=== PATIENT | male | born 1985 | race Caucasian/White ===

== ENCOUNTER 2016-05-09 17:19 | Emergency (ER) ==
[2016-05-09 17:38] VITALS: BP 102/59
[2016-05-09] MEDS ORDERED: ZOFRAN ODT PO ONE (18:14)
[2016-05-09] MEDS ORDERED: NORCO-7.5 PO ONE (18:14)
--- NOTE | 2016-05-09 18:20 | PROVIDER DOCUMENTATION ---
HPI-Musculoskeletal Pain/Inj - GENERAL Chief Complaint: Extremity Injury Stated Complaint: HAND INJURY Time Seen by Provider: 05/09/16 17:50 Source: patient - HX OF PRESENT ILLNESS-MUSKULOSKELTAL Nature of Presenting Problem: 31 y/o WM c/o R hand pain s/p punching a pallet at work x 2 hours. Pt states several fx to the hand previously. Reports pain 10/10. Denies any elbow, wrist , shoulder pain. Denies numbness/tingling. LROM due to pain. Review of Systems - Adult - REVIEW OF SYSTEMS - ADULT Constitutional: reports: no symptoms reported. denies: chills, fever Eyes: reports: no symptoms reported. denies: blurred vision, double vision Ears, Nose, Mouth & Throat: reports: no symptoms reported. denies: ear pain, nose pain Cardiovascular: reports: no symptoms reported. denies: chest pain, palpitations Respiratory: reports: no symptoms reported. denies: dyspnea on exertion, shortness of breath Gastrointestinal: reports: no symptoms reported. denies: nausea, vomiting Genitourinary: reports: no symptoms reported. denies: dysuria, frequency Musculoskeletal: reports: see HPI, joint pain. denies: back pain, neck pain Integumentary: reports: no symptoms reported. denies: nail changes, rash Neurological: reports: no symptoms reported. denies: numbness, paresthesia Psychiatric: reports: no symptoms reported Endocrine: reports: no symptoms reported. denies: cold intolerance, heat intolerance Hematologic/Lymphatic: reports: no symptoms reported. denies: easy bruising, prolonged bleeding Allergic/Immunologic: reports: no symptoms reported All Other Systems: Reviewed and Negative Past History - Adult - PAST MEDICAL HISTORY-ADULT Review of Records: reports: Nursing Assessment Review, Medications Reviewed Major Childhood Illnesses: reports: denies history Cardiovascular: reports: denies history Respiratory: reports: denies history Gastrointestinal: reports: denies history Obstetrical/Gynecological: reports: denies history Genitourinary: reports: denies history Musculoskeletal: reports: denies history Neurological: reports: denies history Endocrine/Immune: reports: denies history Other Conditions: reports: denies history - PRIOR SURGERIES/PROCEDURES Surgical/Procedure History: reports: none - PRIOR HOSPITALIZATIONS Prior Hospitalizations: reports: none - IMMUNIZATION STATUS Childhood Immunizations: See Nurse Assessment Flu Vaccine: See Nurse Assessment - FAMILY HISTORY Family History: reviewed, not pertinent - SOCIAL HISTORY Smoking: cigarettes, less than 1 pack/day Provider spent 3-5 mins advising pt. on dangers of tobacco.: Discussed manners to quit use, and f/u contacts for add'l counseling. Physical Exam-Injury Related - Physical Exam-Injury Related Initial Vital Signs Reviewed: Yes General Appearance: alert, moderate distress Eyes: pink conjunctivae Head, Ears, Nose, Mouth & Throat: normocephalic/atraumatic, moist mucous membranes Neck: normal inspection Respiratory: no respiratory distress Cardiovascular: normal peripheral pulses, regular rate, rhythm Peripheral Pulses: radial (R): 2+, radial (L): 2+ Back Exam: normal inspection Extremity: normal gait, normal capillary refill, deformity, swelling (proximal aspect of MC 3-4 of R hand), tenderness (3-4 MC). negative: normal range of motion (LROM at 3-4 digit of R hand, but still able to flex and extend), abnormal NV exam, pulse deficit Integumentary: normal color, warm/dry, blanching Neurologic: negative: aphasia Psych/Mental Status: normal mood/affect, normal thought content, normal thought process, oriented x 3 Progress - PLAN OF CARE/RESULTS Progress/Plan/Lab Results: Orders Category Date Time Status Arm Sling DIRECTED Care 05/09/16 18:13 Active OCL Splint DIRECTED Care 05/09/16 18:13 Active HAND COMPLETE RIGHT [RAD] Stat Exams 05/09/16 17:50 Completed Hydrocodone/APAP 7.5 mg/325 mg [[place]-7.5] Med 05/09/16 18:14 Discontinued 1 each PO NOW ONE Ondansetron Odt [Zofran Odt] Med 05/09/16 18:14 Discontinued 4 mg PO NOW ONE Vital Signs Temp Pulse Resp BP Pulse Ox 05/09/16 17:29 97.8 F 60 18 102/59 100 cefixime [From Suprax] Allergy (Mild, Verified 05/09/16 19:21) SWELLING cinnamon [Cinnamon] Adverse Reaction (Mild, Verified 05/09/16 19:21) SWELLING Hydrocodone/APAP 7.5 mg/325 mg [[place]-7.5] 1 each PO Q6H PRN PRN #20 tablet 08/20 Promethazine [Phenergan] 25 mg PO Q6H PRN PRN #20 tablet 05/09/16 Discussed wear of splint and f/u with orthopedist. - XRAY 1 XRAY: Right XRAY Study: Hand XRAY Interpretation: impacted fx of base of 4th MC Procedures - SPLINTING Right Upper Extremity Pre-Procedure Neurovascular Exam: Intact Pre-Fabricated Splint: Arm Sling Splint Application (Hand-Made): Other (ulnar gutter) Applied By: Mid-level Assisted By: Mid-level Post Procedure Neurovascular Exam: Intact Procedure Comment: Pt tolerated well Departure - Departure Time of Disposition Order: 18:14 DIAGNOSIS: Fracture, metacarpal Qualifiers: Encounter type: initial encounter Metacarpal bone: fourth Fracture type: closed Metacarpal location: base Fracture alignment: displaced Laterality: right Qualified Code(s): S62.314A - Displaced fracture of base of fourth metacarpal bone, right hand, initial encounter for closed fracture Disposition: HOME 01 Certified Medical Emergency: Emergent Condition: Stable Additional Instructions: Follow up with specialist for further management. Take medications as directed. Return if symptoms get worse. ED Follow Up Instructions: You have been treated by a care provider in the Emergency Department. These instructions are being provided to you so you can have an understanding of how to care for yourself upon discharge. Upon discharge from the Emergency Department, you are responsible for making arrangements for follow-up care by a physician of your choice. Take all prescribed medications as directed. Return to the Emergency Department immediately for any new or worsening symptoms. You may call the Physician Referral phone number at [phone] to obtain a list of Physicians who are taking new patients. Prescriptions: Hydrocodone/APAP 7.5 mg/325 mg [[place]-7.5] 1 each PO Q6H PRN PRN #20 tablet PRN Reason: Pain Promethazine [Phenergan] 25 mg PO Q6H PRN PRN #20 tablet PRN Reason: Nausea Referrals: None,PCP [Primary Care Provider] - Carlos Rangel MD [STAFF PHYSICIAN] - Instructions: Hand Fracture, Metacarpals, [id number] Attestation - Physician/ JASMYNE Attestation Patient care was provided by Advanced Practice Provider:: Yes Advanced Practice Provider:: Esther Hansen Advanced Practice Provider documentation review:: The Mid-level provider documentation, treatment plan and medical decision making was reviewed by the physician who agrees with all treatment and medical decision making by the MLP.
--- NOTE | 2016-05-10 08:58 | Diag Imaging Result Document ---
PROCEDURE NAME: HAND COMPLETE RIGHT - 05/09/2016 PLAIN RADIOGRAPH OF THE RIGHT HAND 3 VIEWS: COMPARISON: 12/04/2014. FINDINGS: There is a stable deformity involving the 1st and the 5th metacarpals likely related to old healed fractures. There is suggestion of mild irregularity at the base of the 4th metacarpal that is not seen on the previous study and also there are perhaps small bony fragments near the base of the 4th metacarpal that is best seen on the lateral view. These also cannot be identified on the previous study. This is suggestive of an acute fracture. Please correlate clinically and a followup plain radiograph of the right hand is recommended in 7-10 days to confirm this. No other definite acute fracture is identified. There is soft-tissue edema at the dorsum of the hand. IMPRESSION: 1. Chronic deformities involving the 1st and 5th metacarpals. 2. Findings worrisome for acute fracture at the base of the 4th metacarpal. Please see above discussion.
== END 2016-05-09 19:24 | disposition home or self-care (01) ==
LOC: ED 17:19
DX: S62.314A Displaced fracture of base of fourth metacarpal bone, right hand, initial encounter for closed fracture (principal); M79.641 Pain in right hand; R22.31 Localized swelling, mass and lump, right upper limb; F17.210 Nicotine dependence, cigarettes, uncomplicated; Z71.6 Tobacco abuse counseling; W22.8XXA Striking against or struck by other objects, initial encounter

== ENCOUNTER 2016-05-24 09:57 | Day surgery (SDC) ==
[2016-05-24] MEDS ORDERED: KEFZOL 1 GM/D5W 50 ML ONE (10:28)
[2016-05-24] MEDS ORDERED: PEPCID ONE (10:28)
[2016-05-24] MEDS ORDERED: REGLAN ONE (10:28)
[2016-05-24] MEDS ORDERED: LR 1,000 ML ONE ×2 (10:29→13:32)
[2016-05-24] MEDS ORDERED: NEOSPORIN G.U. IRRIGANT ONE (11:30)
[2016-05-24] MEDS ORDERED: MARCAINE 0.5% ONE (11:30)
[2016-05-24] MEDS ORDERED: XYLOCAINE 1% ONE (12:10)
[2016-05-24] MEDS ORDERED: MORPHINE ONE (13:10)
[2016-05-24] MEDS ORDERED: DIPRIVAN 1% ONE (13:10)
[2016-05-24] MEDS ORDERED: FENTANYL ONE (13:10)
[2016-05-24] MEDS: DEMEROL ONE ×2 (13:13→13:18)
[2016-05-24] MEDS ORDERED: PHENERGAN ONE (13:21)
[2016-05-24] MEDS ORDERED: XYLOCAINE-MPF 2% ONE (13:32)
[2016-05-24] MEDS ORDERED: TORADOL ONE (13:32)
[2016-05-24] MEDS ORDERED: DEMEROL ONE (13:44)
[2016-05-24] MEDS ORDERED: NORCO-10 ONE (14:16)
[2016-05-24 14:45] VITALS: BP 121/81
--- NOTE | 2016-05-24 16:31 | OPERATIVE NOTE ---
PROCEDURE DATE: 05/24/2016 PREOPERATIVE DIAGNOSES: 1. Right 4th and 5th carpometacarpal dislocation. 2. Right hamate fracture. POSTOPERATIVE DIAGNOSES: 1. Right 4th and 5th carpometacarpal dislocation. 2. Right hamate fracture. PROCEDURE: 1. Right open reduction internal fixation 4th and 5th carpometacarpal dislocation. 2. Right partial excision hamate. SURGEON: Tiburcio Shin MD LINE ERECTOR APPRENTICE: Blas Fierro RN ANESTHESIA: General with LMA. TOURNIQUET TIME: Just over 30 minutes. IMPLANTS: Three K-wires. DISPOSITION: To PACU, hemodynamically stable. INDICATION FOR PROCEDURE: Mr. Ilan Arriaga 31-year-old male who presented to clinic. Originally from his original x-rays it was hard to tell other than a 4th metacarpal fracture how much of this 4th metacarpal was popped up. So we waited a week for a lot of the swelling to go down, brought him back, repeated x-rays, which did show a pretty significant 4th carpometacarpal dislocation along with a 5th. So discussed with him then about operative intervention. I went over with him the procedure, risks, benefits, potential complications, and he expressed understanding and wished to proceed. DESCRIPTION OF PROCEDURE: Mr. Arriaga was identified in the preoperative holding area. The right upper extremity was marked as correct surgical site. He was then wheeled to the operating room, placed supine on the operating table. All bony prominences well padded. He was induced under general anesthesia. LMA was placed. Tourniquet was placed to the right arm. Right upper extremity was then prepped with chlorhexidine gluconate scrub and then ChloraPrep, and draped in normal sterile fashion. Surgical pause was performed. We identified the correct patient, correct side, and the correct procedure. Preop antibiotics were given. Esmarch was used to exsanguinate the right upper extremity and tourniquet inflated to 250 mmHg. Total tourniquet time was just over 30 minutes. Attempted a closed reduction, but I did not feel that I could get it exactly where we needed it. So I ended up making a longitudinal incision over that 4th CMC joint. Dissection was carried down carefully and the capsule was opened, noticed that a piece of the hamate that did have cartilage on it was loose there and it was very small piece, but it did have a cartilage on it. I felt that I could not put it back down and tack it into place very well since it was small and so I ended up excising a piece of the hamate and that was actually part of the joint surface with the 5th metacarpal. I was able to then open reduce both the 4th and 5th carpometacarpal joints getting down where they should be and then used 2 pins to pin the 4th and the 5th to 3rd metacarpal and then 1 pin that came across from the 4th into the hamate and into the capitate and everything felt very stable after that. I then irrigated everything copiously with normal saline. We closed the capsule with 0 Vicryl, 2-0 Vicryl for the subcutaneous, and nylon on the skin. Final images were taken, which showed we had a really good reduction on all views. We then put Jurgan's balls over the pin. Adaptic, 4x4s, ABD, soft roll and an ulnar gutter splint was applied. Tourniquet was let down. Patient had good capillary refill return to the hand and fingers. The patient was then awoken from general anesthesia, moved to his own bed and taken to the PACU in stable condition. Postoperatively, the patient will be nonweightbearing right upper extremity and I will see him in a week in clinic.
== END 2016-05-24 14:43 | disposition home or self-care (01) ==
LOC: OPS 09:57
PROVIDERS: ATTEND Orthopaedic Surgery
DX: S62.344A Nondisplaced fracture of base of fourth metacarpal bone, right hand, initial encounter for closed fracture (principal); S62.346A Nondisplaced fracture of base of fifth metacarpal bone, right hand, initial encounter for closed fracture; S62.141A Displaced fracture of body of hamate [unciform] bone, right wrist, initial encounter for closed fracture; M25.441 Effusion, right hand; M79.641 Pain in right hand; F17.210 Nicotine dependence, cigarettes, uncomplicated
CPT/HCPCS: 76000; J0690; J1885; J2175; J2270; J2550; J3010; J7120; S0020

== ENCOUNTER 2016-06-05 19:04 | Inpatient (IN) ==
[2016-06-05] MEDS ORDERED: VANCOMYCIN 1 GM/NS 1 GM/250 ML IVPB IV ONE (19:30)
[2016-06-05] MEDS ORDERED: NORCO-7.5 PO ONE (19:30)
--- NOTE | 2016-06-05 19:36 | PROVIDER DOCUMENTATION ---
HPI-General Adult - General Chief Complaint: Post Op Complaint Stated Complaint: RT HAND EXTREMITY PIN INFECTION Time Seen by Provider: 06/05/16 19:17 Source: patient Allergies/Adverse Reactions: Patient Allergies Allergy/AdvReac Type Severity Reaction Status Date / Time cefixime [From Suprax] Allergy Mild SWELLING Verified 06/05/16 19:58 cinnamon [Cinnamon] AdvReac Mild SWELLING Verified 06/05/16 19:58 Home Medications: Home Medication List Medication Instructions Recorded Confirmed Last Taken Type No Home Medications 05/23/16 06/05/16 Unknown History - History of Present Illness -Gen Adult Nature of Presenting Problems: Reports he had two metacarpal bone fx after punching a wall because he was so upset when his brother did not pay his money back X 2 weeks ago. Had surgery done by Dr. Aleida Khoury 12 days ago. Had one week follow up and his wound healing well. Reports he had to remove his cast yesterday because the swelling and his surgical wound oozing pus. Denies new injury and no fever, chills. Location of Pain/Injury: reports: hand(s) (R hand) Pain Radiation: reports: no radiation Quality of Pain: reports: aching Severity: reports: moderate Onset/Duration: reports: 2 days ago Timing: reports: still present Context/Activities at Onset: reports: other (Post op) Modifying Factors: improves with: immobilization, rest. worse with: movement Associated Symptoms: denies: cough, trouble walking Similar Symptoms Previously?: No Recently seen or treated by another doctor?: No Review of Systems - Adult - REVIEW OF SYSTEMS - ADULT Constitutional: reports: no symptoms reported, see HPI. denies: chills, fever, fatique Eyes: reports: no symptoms reported Ears, Nose, Mouth & Throat: reports: no symptoms reported Cardiovascular: reports: no symptoms reported Respiratory: reports: no symptoms reported Gastrointestinal: reports: no symptoms reported Genitourinary: reports: no symptoms reported Musculoskeletal: reports: see HPI, joint pain, joint swelling Integumentary: reports: no symptoms reported Neurological: reports: no symptoms reported Psychiatric: reports: no symptoms reported All Other Systems: Reviewed and Negative Past History - Adult - PAST MEDICAL HISTORY-ADULT Review of Records: reports: Old Records Reviewed, Nursing Assessment Review, Medications Reviewed Major Childhood Illnesses: reports: denies history Cardiovascular: reports: denies history Respiratory: reports: denies history Gastrointestinal: reports: denies history Obstetrical/Gynecological: reports: denies history Genitourinary: reports: denies history Musculoskeletal: reports: denies history Neurological: reports: denies history Endocrine/Immune: reports: denies history Other Conditions: reports: denies history - PRIOR SURGERIES/PROCEDURES Surgical/Procedure History: reports: none - PRIOR HOSPITALIZATIONS Prior Hospitalizations: reports: none - IMMUNIZATION STATUS Childhood Immunizations: See Nurse Assessment Flu Vaccine: See Nurse Assessment - FAMILY HISTORY Family History: reviewed, not pertinent Physical Exam-General - PHYSICAL EXAM-ADULT Initial Vital Signs Reviewed: Yes - CONSTITUTIONAL General Appearance: appears well, alert, no apparent distress - HEAD, EARS, NOSE, MOUTH & THROAT HENMT: normocephalic/atraumatic, moist mucous membranes, normal ENT inspection - NECK Neck: non-tender, full range of motion - RESPIRATORY Respiratory: chest non-tender, lungs clear, normal breath sounds, no pleuratic chest pain, no respiratory distress, no accessory muscle use - CARDIOVASCULAR Cardiovascular: normal peripheral pulses, regular rate, rhythm, no edema, no gallop, no JVD, no murmur - GASTROINTESTINAL (ABDOMEN) Abdominal Exam: normal bowel sounds, non tender, soft, no organomegaly - MUSCULOSKELETAL Back Exam: normal inspection, no CVA tenderness, no vertebral tenderness Extremity: erythema, inflammation, swelling, tenderness, other (R dorsal handsurgical wound with rods in place and swelling with erythema. The fore arm with missing cast and mild swelling noticed at the below elbow area - it is caused by the tight cast after the swelling started.). negative: calf tenderness - SKIN Integumentary: other (See above) - NEUROLOGIC Neurologic: no motor/sensory deficits - PSYCHIATRIC Psych/Mental Status: normal mood/affect, normal thought content, normal thought process, oriented x 3 Progress - PLAN OF CARE/RESULTS Progress/Plan/Lab Results: Vital Signs - 8 hr 06/05/16 19:13 Temperature 98.1 F Pulse Rate 101 H Respiratory Rate 14 Blood Pressure 164/78 O2 Sat by Pulse Oximetry 100 Orders Category Date Time Status Saline Loc NOW Care 06/05/16 19:30 Ordered HAND COMPLETE RIGHT [RAD] Stat Exams 06/05/16 19:30 Ordered BLOOD CULTURE [BLDCUL] Stat Lab 06/05/16 19:30 Uncollected CBC WITH DIFF [HEME] Stat Lab 06/05/16 19:30 Uncollected COMPREHENSIVE METABOLIC PANEL [CHEM] Stat Lab 06/05/16 19:30 Uncollected Hydrocodone/APAP 7.5 mg/325 mg [[place]-7.5] Med 06/05/16 19:30 Once 1 each PO NOW ONE Vancomycin 1 gm IV Now Med 06/05/16 19:30 Ordered Vancomycin 1 gm/Ns 1 gm in 250 ml IV NOW Laboratory Tests 06/05/16 06/05/16 19:35 19:35 WBC 17.30 H RBC 4.50 L Hgb 14.5 Hct 40.6 L MCV 90.2 MCH 32.2 H MCHC 35.7 RDW Std Deviation 13.4 Plt Count 311 MPV 9.9 Immature Gran % (Auto) 0.2 Neut % (Auto) 64.4 Lymph % (Auto) 22.3 Ocean % (Auto) 10.6 H Eos % (Auto) 2.3 Baso % (Auto) 0.2 Immature Gran # (Auto) 0.03 Neut # (Auto) 11.14 H Lymph # (Auto) 3.85 H Ocean # (Auto) 1.84 H Eos # (Auto) 0.40 Baso # (Auto) 0.04 Sodium 137 Potassium 4.3 Chloride 94 L Carbon Dioxide 28 Anion Gap 15 BUN 11 Creatinine 1.0 Estimated GFR/1.73 m2 > 60 BUN/Creatinine Ratio 11 Glucose 106 H Calculated Osmolality 274 Calcium 9.6 Total Bilirubin 0.65 AST 34 ALT 21 Alkaline Phosphatase 88 Total Protein 7.7 Albumin 4.7 Globulin 3.0 Albumin/Globulin Ratio 1.6 Result Diagrams: 06/05/16 19:35 06/05/16 19:35 - XRAY 1 XRAY Study: Hand (Pins in place, no evidence of osteomylitis) - CHANGE OF SHIFT REPORT (ED Provider) Report Given and Care Transferred to:: Dr. Steel Time of Transfer: 20:00 Items Pending: Labs, XRAY Results Departure - Departure Time of Disposition Decision: 20:27 DIAGNOSIS: Postoperative wound infection Qualifiers: Encounter type: initial encounter Qualified Code(s): T81.4XXA - Infection following a procedure, initial encounter Disposition: ADMITTED INPATIENT 09 Certified Medical Emergency: Emergent Condition: Fair Referrals and Follow-Ups: None,PCP [Primary Care Provider] -
[2016-06-05 19:54] LABS: MANUAL DIFF NEEDED? NO
[2016-06-05 20:00] LABS: BASO% 0.2 % (0.0-0.8); EOS% 2.3 % (0.0-10.0); HEMATOCRIT 40.6 % (42.0-52.0); HEMOGLOBIN 14.5 g/dL (14.0-18.0); IMM GRAN# 0.03 X1000 (0.0-0.04); IMM GRAN% 0.2 % (0.0-0.5); LYMPH# 3.85 X1000 (1.2-3.4); LYMPH% 22.3 % (20.5-51.1); MCH 32.2 PG (27-31); MCHC 35.7 g/dL (33-37); MCV 90.2 FL (81-99); MONO# 1.84 X1000 (0.11-0.59); MONO% 10.6 % (1.7-9.3); MPV 9.9 FL (7.4-10.4); NEUT% 64.4 % (42.2-75.2); PLT 311 X1000 (130-400)
[2016-06-05 20:16] LABS: AGAP 15; ALBUMIN 4.7 g/dL (3.5-5.0); ALKALINE PHOSPHATASE 88 U/L (32-122); BUN 11 mg/dL (8-22); CALCIUM 9.6 mg/dL (8.8-10.2); CHLORIDE 94 mmol/L (98-107); COSMO 274; GOT 34 U/L (10-34); GPT 21 U/L (10-44); POTASSIUM 4.3 mmol/L (3.5-5.1); SODIUM 137 mmol/L (136-145); TCO2 28 mmol/L (25-35); TOTAL BILIRUBIN 0.65 mg/dL (0.20-1.00); TOTAL PROTEIN 7.7 g/dL (6.3-8.3)
--- NOTE | 2016-06-05 20:57 | Diag Imaging Result Document ---
PROCEDURE NAME: HAND COMPLETE RIGHT - 06/05/2016 RIGHT HAND, 3 VIEWS: There are three J wires seen in the bases of the third through fifth metacarpals. There is no evidence of lysis or periosteal reaction. Fractures of the base of the fourth metacarpal and hamate are apparently not significantly changed other than the internal fixation since 05/09/2016. The dislocation of the base of the fifth metacarpal has been reduced. IMPRESSION: 1. Postsurgical changes. 2. No apparent osteomyelitis.
--- NOTE | 2016-06-05 22:07 | HISTORY AND PHYSICAL ---
CHIEF COMPLAINT: Right hand pain. HISTORY OF PRESENTING ILLNESS: A 31-year-old male without any significant past medical history. Apparently had a fracture to his right hand about 2-1/2 weeks ago. He got upset or so and hit a pallet with his fist. The patient underwent pinning of his right hand and recently went for a followup with his Orthopedics. At that time, a cast was placed. The patient states that several days later he started having some numbness and more pain, and subsequently he cut off his cast. He called his Orthopedics who told him to go to the emergency department. He was evaluated in the ER and at that time was noted that there was moderate amount of erythema and edema on the right hand. It was thought that possibly there was infection, and patient will need admission for further evaluation and management. At the time of my examination, he denied any headache, visual changes, fevers, chills, chest pain, shortness of breath, hemoptysis, melena, or weight changes but complained of right hand pain. PAST MEDICAL HISTORY: None. PAST SURGICAL HISTORY: None. ALLERGIES: To Suprax. CURRENT MEDICATIONS: As listed on the MAR. SOCIAL HISTORY: [id number] history of smoking. Denies any history of alcohol or illicit drug use. FAMILY HISTORY: No history of coronary artery disease. REVIEW OF SYSTEMS: Twelve-point review of systems as listed in HPI. Other systems negative. PHYSICAL EXAMINATION: GENERAL: Cooperative, friendly male. He is resting comfortably now. VITAL SIGNS: Temperature 98.1 degrees, pulse 101, respirations 14, blood pressure 164/78. He is saturating 100%. HEENT: Atraumatic, normocephalic. Extraocular movements intact. PERRLA. NECK: Supple. CHEST: Clear to auscultation. CARDIOVASCULAR: Regular rate and rhythm. ABDOMEN: Soft, nontender. Positive bowel sounds. EXTREMITY: Right hand edema and erythema. NEUROLOGIC: He is awake, alert, and oriented x3. : No bladder distention. SKIN: Warm. LABORATORIES AND STUDIES: Sodium 137, potassium 4.3, chloride 94, CO2 of 28, BUN is 11, creatinine is 1. Glucose is 106. WBCs 17.30, hemoglobin 14.5, hematocrit 40.6, platelets 311,000. ASSESSMENT: A 31-year-old male who apparently underwent pinning to his right hand 2 weeks ago. Recently had a cast placed. At that time, he developed moderate amount of pain. Subsequently, he cut off his cast. He was evaluated in the ER, and it seemed that his hand seemed infected; and subsequently he will need hospitalization for management. 1. Right hand a postop infection. 2. Ongoing tobacco abuse. PLAN: 1. We will admit patient to medical floor. 2. We will start patient on IV antibiotics. 3. We will consult Orthopedics. 4. I counseled patient on smoking cessation. 5. We will continue to follow and reassess. cc: Clarence Hernandez MD
[2016-06-05] MEDS ORDERED: VANCOMYCIN IV PER PHARMACY MISC SCH (23:59)
[2016-06-05] MEDS ORDERED: ZOFRAN IV PRN (23:59)
[2016-06-06] MEDS: NORCO-7.5 PO PRN ×4 (01:03→19:20)
[2016-06-06] MEDS: VANCOMYCIN 1,200 MG in NS 250 ML IV SCH ×2 (06:06→18:20)
[2016-06-06 06:26] LABS: MANUAL DIFF NEEDED? NO
[2016-06-06 06:34] LABS: BASO% 0.2 % (0.0-0.8); EOS# 0.49 X1000 (0.0-0.7); EOS% 3.9 % (0.0-10.0); HEMATOCRIT 41.8 % (42.0-52.0); HEMOGLOBIN 14.7 g/dL (14.0-18.0); IMM GRAN# 0.02 X1000 (0.0-0.04); IMM GRAN% 0.2 % (0.0-0.5); LYMPH# 2.97 X1000 (1.2-3.4); LYMPH% 23.8 % (20.5-51.1); MCH 31.9 PG (27-31); MCHC 35.2 g/dL (33-37); MCV 90.7 FL (81-99); MONO# 1.61 X1000 (0.11-0.59); MONO% 12.9 % (1.7-9.3); PLT 293 X1000 (130-400); RBC 4.61 XMIL (4.7-6.1)
[2016-06-06 07:11] LABS: AGAP 12; BUN 9 mg/dL (8-22); CALCIUM 9.4 mg/dL (8.8-10.2); CHLORIDE 99 mmol/L (98-107); COSMO 275; POTASSIUM 4.4 mmol/L (3.5-5.1); SODIUM 139 mmol/L (136-145); TCO2 28 mmol/L (25-35)
--- NOTE | 2016-06-06 10:25 | PROGRESS NOTE ---
DATE: 06/06/2016 SUBJECTIVE: Mr. Arriaga was admitted yesterday, 06/05/2016. He is 31-year-old with no significant past medical history apparently. He had a fracture of his right hand about 2-1/2 weeks ago. He got upset and hit a pallet with his fist. The patient underwent pinning of the right hand. Apparently, he went for a followup with orthopedic. At that time, a cast was placed. The patient states that several days later he started having some numbness and more pain. Subsequently, he cut off his cast. He called his orthopedic and he told him to go to the emergency room department. He was evaluated in the ER and was noted he had a moderate amount of erythema and edema in the right hand. Thought possibly, it was an infection. The patient needed admission for further evaluation of the right hand with postop infection. Ongoing tobacco use. Today, he states the hand really hurts him. Generalized swelling of the hand. Dr. Shin, I believe, had done the surgery. He has three J wires in the bases of the 3rd through 5th metatarsal. No evidence of lysis or periosteal reaction. Fractures at the base of the 4th metacarpal and hamate are apparently not significantly changed from the x-ray on 05/09/2016. PHYSICAL EXAMINATION: Afebrile. Temperature 98.4 degrees, pulse 80, respirations 14, blood pressure 125/79. Pupils are equal, round. He is awake, alert, and oriented x3. Lungs are clear in all lung chavez. Cardiovascular: Regular rhythm rate without murmur or S3. Weight 139 pounds. LABORATORY DATA: White blood cell count 12,490. Hematocrit 41, platelet count 293,000. Sodium 139, potassium 4.4, chloride 99. BUN 9, creatinine 0.9. ASSESSMENT AND PLAN: 1. Cellulitis with soft tissue infection in the right hand, status post surgery. We will continue present antibiotics to cover for gram positive and Strep. Continue pain medication. 2. History of tobacco. Continue his nicotine patch. Reviewed orders. The patient is getting vancomycin. He gets 1.2 g q.12. I may cover him with a broader spectrum until we know the infection goes down, and he is getting hydrocodone 7.5 q. [address] Shin to follow. cc: Blair Peña MD
[2016-06-06] MEDS: ZOSYN 3.375 GM/NS 3.375 GM/50 ML IVPB IV SCH ×3 (10:30→21:25)
--- NOTE | 2016-06-06 15:14 | CONSULTATION ---
DATE OF CONSULTATION: 06/06/2016 CHIEF COMPLAINT: Right hand pain. HISTORY OF PRESENT ILLNESS: This is a 31-year-old male, who underwent a closed reduction and percutaneous pinning of his right hand about 2 weeks ago. He came into the office last week for a dressing change and was placed in a cast. At that time the hand was cleared. No indication of infection, with minimal pain. He came into the ER yesterday complaining of pain , swelling, and redness. It was also noted that he had taken his dressing and cast off. He is now admitted for IV antibiotics and orthopedics have been consulted for his hand. PAST MEDICAL HISTORY: No history of really ongoing serious illnesses. PAST SURGERIES: None, other than the hand. ALLERGIES: Suprax. REVIEW OF SYSTEMS: Basically negative. He has no history of any ongoing illnesses, other than he is a smoker. PHYSICAL EXAMINATION: General: This is a 31-year-old male, alert and oriented. Vital Signs: Temperature 98.1 degrees, pulse 101, respirations 14, and blood pressure 164/ 78. HEENT: Pupils equal, round, and reactive. Extraocular movements intact. Neck: Good range of motion, without adenopathy. Respiratory: Respirations equal and unlabored. Clear bilaterally. Heart: Regular rate and rhythm. Abdomen: Soft, nontender. Bowel sounds present. Extremities : He complains of pain in his right hand. There is some redness and swelling. No obvious drainage. He has no splinter or bandage on. The pins are still in place. IMPRESSION: Cellulitis, right hand. PLAN: He will continue on IV antibiotics. We will continue to follow his progression over the next day or so. If the erythema improves we can probably switch him to a po antibiotic. Dictated by Blas Fierro, SHABANA for Tiburcio Shin MD This chart was documented by the indicated scribe, Blas Fierro RN and accurately reflects the services I performed and decisions made by me, Tiburcio Shin MD, as attested by the provider's signature. cc: MD DEBBIE Muhammad
[2016-06-06] MEDS: MOTRIN PO PRN ×2 (16:22→22:22)
[2016-06-07] MEDS: NORCO-7.5 PO PRN ×4 (02:47→21:24)
[2016-06-07] MEDS: ZOSYN 3.375 GM/NS 3.375 GM/50 ML IVPB IV SCH ×4 (03:28→21:26)
[2016-06-07] MEDS: VANCOMYCIN 1,200 MG in NS 250 ML IV SCH ×2 (04:10→17:37)
[2016-06-07] MEDS: MOTRIN PO PRN ×3 (06:00→20:28)
--- NOTE | 2016-06-07 08:36 | PROGRESS NOTE ---
DATE: 06/07/2016 SUBJECTIVE: Mr. Arriaga is lying in bed this morning. Resting well. He was actually sleeping very well this morning. OBJECTIVE: Right Upper Extremity Examination: Hand an looks about the same. There is still some erythema to the dorsal aspect. I did not get any drainage out of the pin sites on exam today. He remains neurovascularly intact to the right upper extremity. ASSESSMENT: Right hand cellulitis after open reduction and percutaneous pinning. PLAN: We are going to keep Mr. Arriaga on IV antibiotics and see how well he responds in the next day or so. Hopefully, if he responds well, then we will be able to get him on p.o. antibiotics and get him discharged. cc: Tiburcio Shin MD
--- NOTE | 2016-06-07 14:04 | PROGRESS NOTE ---
DATE: 06/07/2016 Today Mr. Arriaga referred to be doing relatively fine. Still complained of pains in the right hand. OBJECTIVE: Vital signs: Blood pressure is 132/71, pulse is 78, respirations 18, temperature is 98.5 degrees. General Exam: Mr. Arriaga is a 31-year-old male. He was in bed. Was not in any distress. HEENT: Mucosa is pink and moist. Anicteric. Acyanotic. Neck: Supple. Chest: Clear. Cardiovascular: Regular rate and rhythm. Abdomen: Soft. Extremities: No pedal edema. Significantly in the right upper extremity the hand is still swollen. The dorsal aspect has some erythematous changes all over. There is about 2-3 cm surgical wound which is affronted with sutures and there are some color changes around it. There is also some subcutaneous pinning. The hand dorsal aspect is warm, it is tender. LABORATORY DATA: Blood cultures have been 24 hours no growth. There is not any lab work for today but yesterday the patient had WBC 13.49. He is currently on IV vancomycin and Zosyn. An x-ray of the hand was done on presentation which showed postsurgical changes. No apparent osteomyelitis. There are fractures of the base of the 4th metacarpal and hamate apparently not significantly changed other than internal fixation. ASSESSMENT: 1. Cellulitis of right hand. The patient does have hardware inside and this seems to be post surgical infection. The concern is if the hardware is infected. Patient is currently on Zosyn and vancomycin. I will consult ID for evaluation just because patient has the hardware and antibiotic duration will be a little bit longer and the concern for possible osteo. 2. History of tobacco abuse. Patient has been counseled. 3. Right 4th and 5th carpometacarpal dislocation and right hamate fracture status post open reduction and internal fixation and a partial excision of the hamate bone. This was done by Dr. Shin on 05/24/2016. cc: Stan Rushing MD
--- NOTE | 2016-06-07 15:52 | CONSULTATION ---
DATE OF CONSULTATION: 06/07/2016 CONCLUSION: The patient has a right hand cellulitis. He struck the hand against a wall; it became swollen and red. He has undergone surgery, including placement of pins in his hand. MEDICATIONS: Currently, the patient is receiving a combination of vancomycin and Zosyn. RECOMMENDATIONS: I agree with the patient's current antimicrobial regimen, namely vancomycin and Zosyn. I have obtained a culture from some drainage coming around the patient's pin site, and I have sent this for Gram stain and C and S. I talked to the radiologist about trying to find if there is early osteomyelitis. The plain x-ray did not show any osteomyelitis. We settled on getting a bone scan, even though the patient has recently had surgery on the hand. The radiologist said that after it has been 2 weeks since the surgery. That it would be reasonable to order the bone scan. He thought that with an MRI of the hand, there would be a lot of artifact because of the metal in the patient's hand. PRESENT ILLNESS: As mentioned above, the patient hit his hand against the wall and broke bones. He had surgery on it as mentioned above. His hand became erythematous and swollen. He has not had any fever or chills. There has been some drainage from one of the pin sites that appeared to have some purulence in it. A culture of some of the drainage was collected and is being sent to microbiology for workup. Patient's CBC shows a white count of 12,490, hemoglobin 14.7 and platelet count 293,000. Creatinine is 0.9. The GFR is greater than 60. Liver function studies are normal. Blood cultures are sterile. X-ray of the right hand shows postoperative changes, but no osteomyelitis. PAST MEDICAL HISTORY/REVIEW OF SYSTEMS: Eyes and ears: He denies difficulty hearing or seeing. Neck: No stiffness. Respiratory: No cough or shortness of breath. GI: No nausea, vomiting or diarrhea. Cardiac: No chest pain or palpitations. Bones, joints, muscles: As mentioned above, the patient's right hand has been swollen and erythematous and painful. Endocrine: He does not have diabetes or thyroid disease. Neurologic: He does not have any motor or sensory loss or seizures. The remainder of the patient's review of systems was completed and was negative. PREVIOUS HOSPITALIZATIONS AND OPERATIONS: His only since surgery is the one performed on his right hand by Dr. Shin. MEDICAL DISEASES: Negative for diabetes mellitus and hypertension. Infectious disease history positive for shingles, negative for pneumonia and UTI. FAMILY HISTORY: Positive the cancer. Negative for diabetes or hypertension. SOCIAL HISTORY: [place] He smokes cigarettes. Does not drink alcoholic beverages or abuse drugs. He is . He works as a shopper's aide. HOME MEDICATIONS: The patient does not have any home medications. ALLERGIES: His chart says he is allergic to cefixime and cinnamon. PHYSICAL EXAMINATION: Vital Signs: Temperature is 98.5 degrees, pulse 78, respirations 18, blood pressure 132/71. General: This is a fairly healthy-appearing, young male. He is in no acute distress. Head, eyes, ears, nose, and throat: He can hear my spoken words and see near objects. No drainage noted from the nose or ears. Neck: No meningismus. Thorax: No increased AP diameter of the chest. Lungs: Clear to auscultation. Cardiovascular: Peripheral pulses are palpable. Heart rate is regular. Abdomen: Soft and nontender. Bones, joints, muscles: The right hand had 2 pins that came out of the surface. The dorsum of the hand was erythematous and swollen. There was some slightly purulent drainage which I sent for culture. Neurologic: Patient is alert. He can move his extremities. There is no tremor. His memory, as regarding his medical history, is intact. Thank you for the consult. cc: Eddie Phillips MD
[2016-06-08] MEDS: NORCO-7.5 PO PRN ×4 (04:03→21:38)
[2016-06-08] MEDS: ZOSYN 3.375 GM/NS 3.375 GM/50 ML IVPB IV SCH ×2 (04:04→10:37)
[2016-06-08] MEDS: VANCOMYCIN 1,200 MG in NS 250 ML IV SCH ×3 (04:42→17:33)
[2016-06-08 06:29] LABS: MANUAL DIFF NEEDED? NO
[2016-06-08 06:42] LABS: BASO% 0.4 % (0.0-0.8); EOS# 0.45 X1000 (0.0-0.7); EOS% 6.3 % (0.0-10.0); HEMATOCRIT 39.9 % (42.0-52.0); HEMOGLOBIN 13.8 g/dL (14.0-18.0); LYMPH# 2.88 X1000 (1.2-3.4); LYMPH% 40.1 % (20.5-51.1); MCH 31.6 PG (27-31); MCHC 34.6 g/dL (33-37); MCV 91.3 FL (81-99); MONO# 0.77 X1000 (0.11-0.59); MONO% 10.7 % (1.7-9.3); MPV 10.1 FL (7.4-10.4); NEUT% 42.5 % (42.2-75.2); PLT 267 X1000 (130-400); RBC 4.37 XMIL (4.7-6.1)
[2016-06-08 07:07] LABS: AGAP 12; BUN 12 mg/dL (8-22); CALCIUM 9.2 mg/dL (8.8-10.2); CHLORIDE 101 mmol/L (98-107); COSMO 276; POTASSIUM 4.3 mmol/L (3.5-5.1); SODIUM 139 mmol/L (136-145); TCO2 26 mmol/L (25-35)
--- NOTE | 2016-06-08 07:58 | PROGRESS NOTE ---
DATE: 06/08/2016 SUBJECTIVE: Mr. Arriaga is lying in bed this morning. Complains of some pain in the hand. He was resting this morning when I went in there. OBJECTIVE: Right upper extremity exam: Just a little bit of drainage out of his ulnar side pins. Hand is still fairly swollen. He still has some erythema to the dorsal aspect of the hand. Incision looks to be healing really well. ASSESSMENT: Right surgical wound infection with cellulitis. PLAN: We are going to keep Mr. Arriaga on IV antibiotics for now until this erythema begins to clear up. I think a bone scan or an MRI would light up secondary to the surgery itself. Right now it does not feel like he has any abscess present and so I am okay with treating him with IV antibiotics at this point still. Will continue to monitor daily. Once the erythema begins to resolve and the hand swelling goes down then we can talk about getting him on p.o. antibiotics at that point. cc: Tiburcio Shin MD
--- NOTE | 2016-06-08 13:58 | PROGRESS NOTE ---
DATE: 06/08/2016 PRESENT ILLNESS: The patient has a severe cellulitis of the right hand. There is a question that the patient may have osteomyelitis as well. MEDICATIONS: The patient currently is receiving vancomycin and Zosyn intravenously. PHYSICAL EXAMINATION: Vital Signs: Temperature is 98.3 degrees, pulse 74, respirations 16, blood pressure 113/68. General: This is a somewhat ill-appearing, young male. He is in no acute distress. Lungs: Clear to auscultation. Cardiovascular: Regular heart rate. Extremities: Patient's right hand is erythematous and swollen. There are pins and wires in place. LAB AND X-RAY: CBC shows a white count of 7119, hemoglobin 13.8 and platelet count 267,000. Culture taken from the patient's hand is growing gram positive cocci. ASSESSMENT AND PLAN: The patient has cellulitis of the hand and possibly underlying osteomyelitis. My plan is to continue the patient's current antibiotics pending the identity and susceptibility of the organisms. I have gone ahead and ordered a 3-phase bone scan of the right hand to see if there is underlying osteomyelitis. I agree with Dr. Shin that the test may be limited in diagnosing osteomyelitis because the patient recently had surgery on the hand. Patient's comorbidity is that he got angry and hit his hand against the wall according to what he said. cc: Eddie Phillips MD
--- NOTE | 2016-06-08 15:14 | PROGRESS NOTE ---
DATE: 06/08/2016 Today Mr. Arriaga referred to be doing okay. He continues to have some significant pain especially in the right hand. OBJECTIVE: Vital signs: Blood pressure is 126/56, pulse of 71, respirations 18 , temperature is 98.0 degrees. General Exam: Mr. Arriaga is a 31-year-old male. He was in bed. Not seeming to be in any distress. HEENT: Mucosa is pink and moist. Anicteric. Acyanotic. Neck: Supple. Chest: Clear. Cardiovascular: Regular rate and rhythm. Abdomen: Soft. Extremities: No pedal edema. Specifically on the right upper extremity the hand continues to be mildly swollen. The stitches over the dorsum are in place. There are still areas of mild erythematous changes and tender but no fluctuation and no active drainage. The culture from the hand was sent yesterday by Dr. Phillips so far is growing gram-positive cocci and it is presumed to be MRSA. ASSESSMENT: 1. MRSA cellulitis of right hand with hardware and recent bone fractures. Patient is scheduled for a bone scan. My understanding is that he is going to be treated for a longer period of time with IV antibiotics. He is currently on Zosyn and vancomycin. I think he would probably benefit on only MRSA coverage antibiotics for now. I would defer the antibiotic choice to our ID colleagues. 2. Right 4th and 5th carpometacarpal dislocation and right hamate fracture status post open reduction and internal fixation and partial excision of the hamate bone. This was done by Dr. Shin on 05/24/2016. 3. Tobacco abuse. Patient has been counseled. 4. Pain to the right hand which I think is most likely due to the underlying infection and the postsurgical changes. We will optimize his pain medication needs. I will be waiting on Infectious Disease to make final recommendation as to how the antibiotic treatment is going to be and for how long and to know if patient will be needing a PICC line. cc: Stan Rushing MD MTDD
[2016-06-08] MEDS: MORPHINE IV PRN ×2 (18:30→22:47)
[2016-06-09] MEDS: MORPHINE IV PRN ×4 (04:23→18:24)
[2016-06-09] MEDS: VANCOMYCIN 1,200 MG in NS 250 ML IV SCH ×2 (05:05→16:30)
[2016-06-09] MEDS: NORCO-7.5 PO PRN ×4 (05:14→19:51)
--- NOTE | 2016-06-09 13:27 | Diag Imaging Result Document ---
PROCEDURE NAME: 3 PHASE BONE SCAN - 06/08/2016 THREE-PHASE BONE SCAN OF THE HANDS: COMPARISON: X-rays from 06/05/2016. FINDINGS: 30.8 mCi of MDP was administered. There is significantly increased uptake, blood pool, and delayed phase activity at the base of the 4th and 5th metacarpals. This is in the region of the previous fracture, and there are 3 K-wires extending into the metacarpal bases and proximal carpal row in this area. IMPRESSION: Nonspecific increased uptake at the fracture site. This is consistent with fracture healing, however, osteomyelitis is not excluded.
--- NOTE | 2016-06-09 16:38 | PROGRESS NOTE ---
DATE: 06/09/2016 SUBJECTIVE: Mr. Arriaga is doing well, feeling maybe a little better this morning. OBJECTIVE: Right upper extremity exam: Hand is not near as cellulitic this morning. Overall swelling looks to be a little bit decreased as well. ASSESSMENT: Right cellulitis after open reduction, percutaneous pinning of his hand. PLAN: I think Mr. Arriaga has finally turning the corner and gotten better. I am going to keep him in-house for at least another day, then will re-evaluate things in the morning. Hopefully if we can get everything set up we can try to get him out over the weekend maybe. cc: Tiburcio Shin MD
--- NOTE | 2016-06-09 17:10 | PROGRESS NOTE ---
DATE: 06/09/2016 PRESENT ILLNESS: The patient has severe cellulitis of the right hand. We have cultured from that hand methicillin-resistant Staph aureus. There is a question that the patient could have osteomyelitis as well. MEDICATIONS: The patient is receiving vancomycin as a single agent. PHYSICAL EXAMINATION: Vital Signs: Temperature is 98.8 degrees, pulse 80, respirations 18, blood pressure 126/72. General: The patient looks well. He is in no acute distress. Lungs: Clear to auscultation. Cardiovascular: Regular heart rate. Abdomen: Soft and nontender. Extremities: The patient's right hand is less erythematous and swollen. There is a small amount of purulent drainage coming from the pin site. LAB AND X-RAY: There is no new CBC for today. The patient's creatinine is 0.9. The GFR is greater than 60. The patient yesterday had a bone scan and it was read by Dr. Arevalo who said there was uptake at the fracture site which is consistent with a healing fracture however osteomyelitis is not excluded. ASSESSMENT AND PLAN: I talked with the patient various treatment options. I told him that if he did have MRSA osteomyelitis we would typically treat that for 8 weeks with IV vancomycin. If he did not have an osteomyelitis then we would treat with an oral agent such as Septra for a variable period of time until we feel that the infection has been cleared. The patient and I have finally agreed to treating with oral Septra for a period of 8 weeks. I told the patient that Septra is well absorbed and you can get a good blood level with it which would mean that a lot which get through to the patient's tissues. I have written him a prescription for 50 Septra and then with 1 refill. I will see the patient back in my office in 4 weeks and at that time, if it looks indicated we will continue with another 4 weeks of treatment with Septra. There is 1 refill on the prescription that I printed up for the patient. Some of the side effects of Septra including rash, diarrhea, and avoiding sunlight, have been explained to the patient who agrees with treatment. COMORBIDITY: He slammed his hand into the wall and caused injury to his hand. cc: Eddie Phillips MD
--- NOTE | 2016-06-09 17:15 | PROGRESS NOTE ---
DATE: 06/09/2016 SUBJECTIVE: Today Mr. Arriaga referred to be doing fine. He still has some pain in the right hand, but not as bad as days before. OBJECTIVELY: Vital Signs: Stable. Blood pressure is 126/72, pulse of 80, respiration is 18, temperature is 98.8 degrees. General: Mr. Abraham is a 31-year-old male. He was in bed, he was not in any distress. HEENT: Mucosa is pink and moist. Anicteric. Acyanotic. Neck: Supple. Musculoskeletal: The right upper extremity: The hand continues to be slightly swollen with mild erythematous changes around the stitches, but the swelling is a whole lot better than before. DIAGNOSTIC DATA: No lab work for today. The bone scan only shows nonspecific increased uptake at the fracture site. This is consistent with fracture healing, however, osteomyelitis is not excluded. ASSESSMENT: 1. MRSA cellulitis of right hand with hardware and recent bone fracture. Bone scan is not very conclusive. I spoke with Dr. Phillips this morning and he plans to probably send the patient home on p.o. Bactrim from tomorrow, but he will prefer to give him another dose of IV antibiotics today. 2. Right 4th and 5th carpometacarpal dislocation and right hamate fracture status post reduction and internal fixation and partial excision of the hamate bone. This was done by Dr. Shin on 05/24/2016. 3. Tobacco abuse. Patient has been advised. 4. In general I think Mr. Arriaga is doing a whole lot better. The swelling is coming down with the antibiotics. There is a plan to probably switch this to p.o. Bactrim by Dr. Phillips, and we can get him out hopefully tomorrow. cc: Stan Rushing MD
[2016-06-10] MEDS: MORPHINE IV PRN ×2 (04:26→09:30)
[2016-06-10] MEDS: VANCOMYCIN 1,200 MG in NS 250 ML IV SCH (04:29)
[2016-06-10] MEDS: NORCO-7.5 PO PRN ×2 (05:21→10:57)
--- NOTE | 2016-06-10 08:12 | PROGRESS NOTE ---
DATE: 06/10/2016 SUBJECTIVE: Mr. Arriaga lying in bed this morning asleep. I woke him up. Overall, he is feeling okay. He still gets some pain in the hand. OBJECTIVE: Right upper extremity exam, the swelling has come down a pretty good bit. There is not near as much erythema to the hand at all. Things are looking a lot better. ASSESSMENT: Status post open reduction and percutaneous pinning of 4th and 5th carpometacarpal dislocations and hamate fracture, 4th metacarpal carpal fracture with cellulitis. PLAN: I am okay with Mr. Arriaga going home on p.o. antibiotics. I know Dr. Phillips talked to him about it yesterday. I will see him this next week in clinic and re-evaluate the hand. We will plan on keeping the pins in for a good 6 weeks from the time of surgery, and we will take them out at that time. cc: Tiburcio Shin MD
[2016-06-10 15:24] VITALS: BP 135/73
[2016-06-11] MEDS ORDERED: PRILOSEC PO SCH (07:00)
--- NOTE | 2016-06-11 12:42 | DISCHARGE SUMMARY ---
ADMISSION DATE: 06/05/2016 DISCHARGE DATE: 06/10/2016 CONSULTATIONS: Dr. Tiburcio Shin with Orthopedics and Dr. Eddie Phillips with Infectious Disease. PERTINENT PROCEDURES: Nuclear bone scan showed nonspecific increased uptake at the fracture site consistent with fracture healing however some osteomyelitis could not be excluded. DISCHARGE DIAGNOSES: 1. MRSA cellulitis of the right hand with hardware and recent bone fracture. Bone scan was not very conclusive per ID. Patient will be sent home on p.o. antibiotics. 2. Right 4th and 5th carpometacarpal dislocation and right hamate fracture status post reduction and internal fixation and partial excision of the hamate bone performed by Dr. Shin on 05/24/2016. Stable. Continue to be followed by Dr. Shin. 3. Tobacco abuse. Patient has been advised against use, cessation as well as a means to quit. HOSPITAL COURSE: Briefly, Mr. Arriaga is a 31-year-old male without any significant past medical history, had a fracture to his hand about 2 and half weeks ago. He got upset and hit a pallet with his fist. Patient underwent pinning of his right hand and recently went for a followup with his orthopedics. At that time a cast was placed. The patient states that several days later he started having some numbness and more pain and subsequently he cut his cast off. He called his orthopedic who told him to the emergency department. He was evaluated in the ED and found to have a moderate amount of erythema and edema on the right hand with possible infection. Patient was admitted. Started on IV antibiotics with an Orthopedic as well as Infectious Disease consult. Patient was counseled against smoking cessation. He underwent a bone scan that showed nonspecific increased uptake at the fracture site consistent with fracture healing however osteomyelitis could not be excluded. His right upper extremity swelling has improved. There is not as much erythema. Dr. Shin as well as Dr. Eddie Phillips are okay with the patient being discharged home with p.o. antibiotics and to follow up with Dr. Shin in the clinic to re-evaluate the hand and he will plan on keeping the pins in for a good 6 weeks from the time of surgery and will take them out at that time. Patient is being discharged home with p.o. antibiotics. Vital signs at time of discharge, temperature is 97.8 degrees, heart rate 77, respirations 20, blood pressure 135/77, O2 is 100% on room air. DISCHARGE MEDICATIONS: 1. Walton 7.5/325 one each p.o. q.4 hours p.r.n. pain. 2. Motrin 800 mg p.o. q.6 hours p.r.n. 3. Prilosec 20 mg p.o. daily. 4. Bactrim 1 each p.o. b.i.d. FOLLOWUP: Patient is being discharged home. He will follow up with Dr. Shin as well as Dr. Eddie Phillips. Patient to return to the ED for any worsening of symptoms. Discharge time 30 minutes. Dictated by YAZ Yeung for Stan Rushing MD cc: Stan Rushing MD
== END 2016-06-10 16:00 | disposition home or self-care (01) ==
LOC: ED 19:04 → 4N 23:50 → SUATTDRO 23:50 → 3N 06-08 18:14
PROVIDERS: ATTEND Internal Medicine